=== PATIENT | female | born 1955 | race American Indian/Alaskan Native ===

== ENCOUNTER 2018-01-09 16:46 | Emergency (ER) | payer SELFPAY ==
[2018-01-09 16:57] VITALS: BP 193/96
--- NOTE | 2018-01-09 17:59 | Emergency Department Report ---
ED Back Pain/Injury HPI - General Chief Complaint: Extremity Injury, Lower Stated Complaint: LFT SIDE PAIN Time Seen by Provider: 01/09/18 17:43 Source: patient Limitations: No Limitations - History of Present Illness Initial Comments: Patient is a 62-year-old female who is presenting with back pain. Patient states that she has generalized back pain as a burning sensation as in severity. Patient states pain happens occasionally. Patient has not mentioned this to her primary care physician lately. Patient states this radiation of pain down the right leg as well. Patient denies any bowel or bladder dysfunction or fevers or chills. MD Complaint: back pain Severity scale (0 -10): 8 Quality: aching - Related Data Previous Rx's Medication Instructions Recorded Last Taken Type Ibuprofen [Motrin] 600 mg PO Q8H PRN #20 tablet 01/09/18 Unknown Rx methOCARBAMOL [Robaxin TAB] 500 mg PO Q6H PRN #15 tablet 01/09/18 Unknown Rx traMADol [Ultram] 50 mg PO Q6HR PRN #10 tablet 01/09/18 Unknown Rx Allergies Allergy/AdvReac Type Severity Reaction Status Date / Time No Known Allergies Allergy Unverified 01/09/18 16:51 ED Review of Systems ROS: Stated complaint: LFT SIDE PAIN Other details as noted in HPI Comment: All other systems reviewed and negative ED Past Medical Hx - Past Medical History SCOLIOSIS ED Back Pain Physical Exam - Exam General: Vital signs noted. No distress. Alert and acting appropriately. Back/Abdomen: Yes Perilumbar Tenderness, No Abdominal Tenderness, No Perithoracic Tenderness, No Sacroiliac Tenderness, No Flank Tenderness, No Straight Leg Raise Pain Neuro: Yes Normal Sensation, Yes Normal DTR's, Yes Normal Gait, No Motor Weakness ED Course Vital Signs 01/09/18 16:53 Temperature 98.5 F Pulse Rate 112 H Respiratory 20 Rate Blood Pressure 193/96 O2 Sat by Pulse 98 Oximetry Critical care attestation.: If time is entered above; I have spent that time in minutes in the direct care of this critically ill patient, excluding procedure time. ED Disposition Clinical Impression: Sciatica Qualifiers: Laterality: right Qualified Code(s): M54.31 - Sciatica, right side Back pain Qualifiers: Back pain location: low back pain Chronicity: unspecified Back pain laterality : unspecified Sciatica presence: unspecified whether sciatica present Qualified Code(s): M54.5 - Low back pain Disposition: TO HOME OR SELFCARE Is pt being admited?: No Does the pt Need Aspirin: No Condition: Stable Instructions: Lumbar Radiculopathy (ED) Referrals: PRIMARY CARE, [Primary Care Provider] - 3-5 Days MARGARET GUTIERREZ MD [Staff Physician] - 3-5 Days
== END 2018-01-09 18:19 | disposition home or self-care (01) ==
LOC: ED 16:46
DX: M54.41 Lumbago with sciatica, right side (principal)
CPT/HCPCS: 99282